=== PATIENT | male | born 1955 | race Caucasian/White ===

== ENCOUNTER 2016-06-08 14:44 | Outpatient (CLI) | payer OTHER ==
--- NOTE | 2016-06-08 16:07 | DIAGNOSTIC IMAGING REPORT ---
PROCEDURE: US BILATERAL CAROTID DOPPLER INDICATION: TIA TECHNIQUE: Color Doppler duplex imaging of the carotid and vertebral vessels. COMPARISON: None. FINDINGS: Right carotid system: No significant stenosis. A small, focal calcified plaque measuring about 5 mm along the wall of the proximal right internal carotid artery does not cause significant luminal stenosis or wave form alteration. Left carotid system: No significant stenosis visualized. The waveforms are normal. Vertebral System: Antegrade vertebral artery flow bilaterally. Right common carotid artery peak systolic velocity 72 cm/second. Right internal carotid artery peak systolic velocity 62 cm/second. Right external carotid artery peak systolic velocity 90 cm/second. Right abjlzncx-tx-bfqlfq carotid artery ratio 0.86 Right vertebral artery peak systolic velocity 55 cm/second. Left common carotid artery peak systolic velocity 76 cm/second. Left internal carotid artery peak systolic velocity 61 cm/second. Left external carotid artery peak systolic velocity 95 cm/second. Left knguvpff-xw-pzmjnf carotid artery ratio 0.8 Left vertebral artery peak systolic velocity 38 cm/second. IMPRESSION: 1. No hemodynamically significant stenosis in either carotid system. 2. Antegrade vertebral artery flow bilaterally. 3. Tiny amount of calcified plaque in the proximal right internal carotid artery is unlikely to be clinically significant. Velocity criteria are extrapolated from diameter data as defined by the Society of [employer]iologists in Ultrasound Consensus Conference, Radiology 2003; 229; 340-346.
--- NOTE | 2016-06-08 16:07 | DIAGNOSTIC IMAGING REPORT ---
PROCEDURE: US BILATERAL CAROTID DOPPLER INDICATION: TIA TECHNIQUE: Color Doppler duplex imaging of the carotid and vertebral vessels. COMPARISON: None. FINDINGS: Right carotid system: No significant stenosis. A small, focal calcified plaque measuring about 5 mm along the wall of the proximal right internal carotid artery does not cause significant luminal stenosis or wave form alteration. Left carotid system: No significant stenosis visualized. The waveforms are normal. Vertebral System: Antegrade vertebral artery flow bilaterally. Right common carotid artery peak systolic velocity 72 cm/second. Right internal carotid artery peak systolic velocity 62 cm/second. Right external carotid artery peak systolic velocity 90 cm/second. Right jtdfpphv-gh-xfddwe carotid artery ratio 0.86 Right vertebral artery peak systolic velocity 55 cm/second. Left common carotid artery peak systolic velocity 76 cm/second. Left internal carotid artery peak systolic velocity 61 cm/second. Left external carotid artery peak systolic velocity 95 cm/second. Left spsjbkch-qz-bciuae carotid artery ratio 0.8 Left vertebral artery peak systolic velocity 38 cm/second. IMPRESSION: 1. No hemodynamically significant stenosis in either carotid system. 2. Antegrade vertebral artery flow bilaterally. 3. Tiny amount of calcified plaque in the proximal right internal carotid artery is unlikely to be clinically significant. Velocity criteria are extrapolated from diameter data as defined by the [employer] of [employer]ologists in Ultrasound Consensus Conference, Radiology 2003; 229; 340-346.
== END 2016-06-08 23:00 ==
LOC: US SRH 14:44
DX: G45.9 Transient cerebral ischemic attack, unspecified (principal)